=== PATIENT | male | born 1935 | race Two or more races ===

== ENCOUNTER 2021-05-09 13:27 | Inpatient (IN) | payer OTHER ==
[~2021-05-09] VITALS: Ht 167.6 cm; Wt 66.2 kg
[2021-05-09] MEDS ORDERED: AMLODIPINE-OLM1 EAC2 (13:43)
[2021-05-09] MEDS ORDERED: CHILDREN'S15 MG/1 M1 (13:44)
[2021-05-09] MEDS ORDERED: SODIUM BIC (13:44)
[2021-05-09] MEDS ORDERED: DILTIAZEM 24HR180 MG (13:45)
--- NOTE | 2021-05-09 13:45 | NUR ---
PACIENTE MASCULINO, ALERTA Y ORIENTADO. REFIERE RECIBIO JENNIFER LLAMADA DE LABORATORIO INDICANDOLE QUE TIENE PLAQUETAS BAJAS. PACIENTE FUE A HOUSE MEDICO, DR. MONICA MOCTEZUMA, EL CUAL LO REFIERE A SHAILESH DE EMERGENCIAS. SE MIDE S/V. SE UBICA EN SHAILESH DE OBSERVACION.
--- NOTE | 2021-05-09 15:27 | NUR ---
PACIENTE EVALUADO POR DR CORDOVA QUIEN ORDENA [place] MEDICO, SE LE ORIENTA A PACIENTE SOBRE EL MISMO, SE LE MICKY PRUEBAS DE LABORATORIO Y SE CANALIZA AL PACIENTE CON MEDIDAS ASEPTICAS. SE MICKY MUESTRAS DE BI PARA TRANSFUCION Y SE LLEVA A BANCO DE BI. PENDIENTE EKG.
== END 2021-05-12 14:48 | disposition home or self-care (01) | DRG 813 ==
LOC: ER 13:27 → MEDJ 21:11
PROVIDERS: ADMIT Internal Medicine; ATTEND Internal Medicine
PROC: 30233R1 Transfusion of Nonautologous Platelets into Peripheral Vein, Percutaneous Approach (ICD-10-PCS; principal; 2021-05-10)
PROC: BW40ZZZ Ultrasonography of Abdomen (ICD-10-PCS; 2021-05-10)
PROC: B24BZZZ Ultrasonography of Heart with Aorta (ICD-10-PCS; 2021-05-10)
DX: D69.6 Thrombocytopenia, unspecified (principal); N17.8 Other acute kidney failure; N39.0 Urinary tract infection, site not specified; E86.0 Dehydration; J90 Pleural effusion, not elsewhere classified; I21.9 Acute myocardial infarction, unspecified; I12.9 Hypertensive chronic kidney disease with stage 1 through stage 4 chronic kidney disease, or unspecified chronic kidney disease; N18.30 Chronic kidney disease, stage 3 unspecified; D64.9 Anemia, unspecified; Z20.822 Contact with and (suspected) exposure to COVID-19

== ENCOUNTER 2021-08-28 16:30 | Inpatient (IN) | payer OTHER ==
[~2021-08-28] VITALS: Ht 167.6 cm; Wt 69.9 kg
[~2021-08-28 16:30] MED LIST: AMLODIPINE-OLM1 EAC2; CHILDREN'S15 MG/1 M1; DILTIAZEM 24HR180 MG; SODIUM BIC
--- NOTE | 2021-08-28 17:12 | NUR ---
SE RECIBE PACIENTE ALERTA Y ORIENTADO X3 QUIEN REFIERE ADONIS CATARINA AL LABORATORIO EL MORGAN DE HOY Y LE INDICARON QUE TENIA LOS NIVELES DE HEMOGLOBINA EN 6. SE MONITOREAN LOS SV Y SE UBICA EN OBSERVACION.
[2021-08-28] MEDS ORDERED: ISOSORBIDE MONO60 MG (17:14)
[2021-08-28] MEDS ORDERED: VITAMIN B-121000 MC4 (17:14)
[2021-08-28] MEDS ORDERED: TOLTERODINE TART4 MG (17:14)
[2021-08-28] MEDS ORDERED: PEPCID AC20 MG (17:15)
--- NOTE | 2021-08-28 20:34 | NUR ---
PACIENTE EVALUADO POR MANDI MCGEE QUIEN ORDNEA [place] MEDICO. SE ORIENTA A PACIENTE SOBRE EL MISMO REFIERE ENTENDER Y SE EJEUCTAN ORDENES MEDICAS. SE LLAMA A BANCO DE BI Y NOTIFICA MISS MARKS QUE PACIENTE TIENE RECORD PREVIO. SE LE JADE CONCENTIMIENTO A PACIENTE SOBRE TRANFUSION, SE COLECTAN MUESTRAS Y SE ENVIAN AL LABORATORIO. SE LLAMA [place] A [facility] DE BI PARA RECOGIDO DE MUESTRAS EN EL HOSPITAL . SE REQUIZAR 2 UNIDADES DE PRBC ORDENADAS POR LA DRA MCGEE Y LAS MISMAS ESTARAN EN HOLD.
--- NOTE | 2021-08-28 22:28 | NUR ---
SE NOTIFICA CAMBIO DE ORDEN MEDICA DE 3 UNIDADES FRACCIONADAS EN BANCO DE BI DE AUXILIO MUTUO.
--- NOTE | 2021-08-29 01:36 | NUR ---
SE RECIBE PTE ALERTA, ORIENTADO EN BECCA JANAY ESFERAS DEL TURNO ANTERIOR. PTE NO REFIERE DOLOR. VENOPUNCION PATENTE JM DE EDEMA Y ERITEMA. PT CON BUEN PATRON RESPIRATORIO. PENDIENTE PRBC QUE PERSONAL DE BANCO DE BI REFIERE QUE SE ESTA TRABAJANDO EN DA. PENDIENTE CONSULTA CON MEDICINA INTERNA.
--- NOTE | 2021-08-29 03:58 | NUR ---
PERSONAL DE SERVICIOS MUTU[employer] MS ACE REFIERE QUE HAY QUE ACTIVAR PROTOCOLO DE ANTICUERPOS YA QUE PTE SALIO POSITIVO A LOS MISMOS. SE COLECTAN TUBOS BAJO MEDIDAS ASEPTICAS Y SE ENVIAN A BANCO DE BI DE [facility].
--- NOTE | 2021-08-29 07:21 | NUR ---
SE RECIBE PACIENTE MASCULINO ALERTA Y ORIENTADA EN LAS JANAY ESFERAS EL CUAL SE OBSERVA CON BUEN PATRON RESPIRATORIO, CANALIZACION PATENTE, LIMPIA Y SECA Y IVF 0.9NSS AT KVO. PACIENTE PENDIENTE A CONSULTA CON DRA GRAHAM Y TRASFUSION DE 2 UNIDADES DE PRBCS LAS CUALES NO SE ENCUNATRAN DISPONIBLES.
== END 2021-09-08 16:44 | disposition home or self-care (01) | DRG 812 ==
LOC: ER 16:30 → MEDJ 08-29 09:06
PROVIDERS: ADMIT Internal Medicine; ATTEND Internal Medicine
PROC: 30233N1 Transfusion of Nonautologous Red Blood Cells into Peripheral Vein, Percutaneous Approach (ICD-10-PCS; 2021-08-31)
PROC: 0DB78ZX Excision of Stomach, Pylorus, Via Natural or Artificial Opening Endoscopic, Diagnostic (ICD-10-PCS; principal; 2021-09-03)
PROC: 0DBL8ZZ Excision of Transverse Colon, Via Natural or Artificial Opening Endoscopic (ICD-10-PCS; 2021-09-06)
DX: D64.9 Anemia, unspecified (principal); K92.1 Melena; N39.0 Urinary tract infection, site not specified; K29.60 Other gastritis without bleeding; D12.3 Benign neoplasm of transverse colon; K57.30 Diverticulosis of large intestine without perforation or abscess without bleeding; I12.9 Hypertensive chronic kidney disease with stage 1 through stage 4 chronic kidney disease, or unspecified chronic kidney disease; N18.30 Chronic kidney disease, stage 3 unspecified; D63.1 Anemia in chronic kidney disease; R31.9 Hematuria, unspecified; D69.6 Thrombocytopenia, unspecified; Z20.822 Contact with and (suspected) exposure to COVID-19; D72.828 Other elevated white blood cell count; D51.8 Other vitamin B12 deficiency anemias; N40.0 Benign prostatic hyperplasia without lower urinary tract symptoms

== ENCOUNTER 2021-10-02 09:48 | Emergency (ER) | payer OTHER ==
[~2021-10-02] VITALS: Ht 167.6 cm; Wt 71.7 kg
[~2021-10-02 09:48] MED LIST changes: +ISOSORBIDE MONO60 MG; +PEPCID AC20 MG; +TOLTERODINE TART4 MG; +VITAMIN B-121000 MC4
== END 2021-10-04 06:34 | disposition home or self-care (01) ==
LOC: ER 09:48 → SURH 10-03 22:17 → ER 10-04 06:34
DX: D64.9 Anemia, unspecified (principal)

== ENCOUNTER 2021-11-01 11:57 | Inpatient (IN) | payer OTHER ==
[~2021-11-01] VITALS: Ht 167.6 cm; Wt 72.1 kg
--- NOTE | 2021-11-01 12:13 | NUR ---
PACIENTE ALERTA Y ORIENTADO REFIERE HOY LE REALIZARON LAB DE BI A PACIENTE Y HEMOGLOBINA EN 5.7 HOUSE MEDICO PRIMARIO LO REFIRIO A SHAILESH DE EMERGENCIA. SE MONITOREAN S/V Y SE UBICA EN OBSERVACION.
--- NOTE | 2021-11-01 13:53 | NUR ---
PACIENTE EVALUADO POR EL QUIEN ORDENA TRATAMIENTO MEDICO. MANNY REFIERE ENTENDER. SHABANA CRAIG REALIZA MUESTRAS BAJO MEDIDAS ASEPTICAS. SE REALIZA REQUISION DE 3 UNIDADES PRBCS A BANCO DE BI.
--- NOTE | 2021-11-01 18:54 | NUR ---
SE RECIBE LLAMADA DE BANCO DE BI DE LA ARIELA.JOSE JUAN QUIEN INDICA QUE LAS UNIDADES DISPONIBLES PARA PTE SON KENIA ALTERNO O+, Y PTE ES AB+. SE REALIZA LLAMADA A DR.MUNOZ CHAVEZ Y SE NOTIFICA ESTO, APRUEBA KENIA ALTERNO PARA PACIENTE EN ESPERA DE BI. SE DEVUELVE LLAMADA A ARIELA.JOSE JUAN INDICANDO QUE APROBO EL KENIA ALTERNO. ARIELA.JOSE JUAN INDICA QUE COUCH PRONTO ESTAS UNIDADES SE ENCUENTREN DISPONIBLES SE [facility].
--- NOTE | 2021-11-01 21:03 | NUR ---
SE RECIBE PTE ALERTA Y ORIENTADO X3 EN KENN, PTE CON H/L X2 COLOCADOS LOS CUALES S EENCUENTRAN PATENTES. PTE CON 3UNIDADES DE PRBC REQUIZADAS PARA TRANSFUNDIR. PTE CON PERMISO FIRMADO. PTE CONSULTADO CON MEDICNA INTERNA. PTE SE CONTINUA MONITORIANDO POR CAMBIOS.
== END 2021-11-07 13:12 | disposition home or self-care (01) | DRG 812 ==
LOC: ER 11:57 → MEDI 21:50
PROVIDERS: ADMIT Internal Medicine; ATTEND Internal Medicine
PROC: 30233N1 Transfusion of Nonautologous Red Blood Cells into Peripheral Vein, Percutaneous Approach (ICD-10-PCS; principal; 2021-11-01)
DX: D64.89 Other specified anemias (principal); N18.4 Chronic kidney disease, stage 4 (severe); D50.8 Other iron deficiency anemias; D63.1 Anemia in chronic kidney disease; I12.9 Hypertensive chronic kidney disease with stage 1 through stage 4 chronic kidney disease, or unspecified chronic kidney disease; Z20.822 Contact with and (suspected) exposure to COVID-19

== ENCOUNTER 2021-12-23 14:32 | Inpatient (IN) | payer OTHER ==
[~2021-12-23] VITALS: Ht 152.4 cm; Wt 68.0 kg
--- NOTE | 2021-12-23 15:08 | NUR ---
SE RECIBE PTE ALERTA Y ORIENTADO X3 CUAL REFIERE HEMOGLOBINA EN 4. SE MICKY S/V Y SE UBICA.
--- NOTE | 2021-12-23 17:20 | NUR ---
EVALUA PTE. SE EDUCA A PTE SOBRE TX MEDICO EL CUAL REFIERE COMPRENDER. SE REALIZAN MUESTRAS DE LABORATORIO BAJO MEDIDAS ASEPTICAS. SE REALIZA REQUISION PARA 3 UNIDADES DE PRBC FRACCIONADAS, SE COLECTAN TUBOS PILOTOS Y SE NOTIFICA A DE BANCO DE BI DE SERVICIOS [facility]. PTE MANEJADO POR .
--- NOTE | 2021-12-23 21:00 | NUR ---
COLECTA MUESTRAS PARA TUBOS DE PANEL DE ANTICUERPO, SE LLENA DOCUMENTO DE REQUISION Y SE NOTIFICA A MSYOAN (BANCO DE BI) PARA RECOGIDO DE LOS MISMOS.SE LLEVAN MUESTRAS A LABORATORIO PARA RECOGIDO POR BANCO DE BI.
[2021-12-24] MEDS ORDERED: AMLODIPINE BESYL5 MG (08:05)
[2021-12-24] MEDS ORDERED: ESTAZOLAM1 MG (08:05)
[2021-12-24] MEDS ORDERED: ABANEU-SL TABL1 EACH (08:05)
[2021-12-24] MEDS ORDERED: TAMSULOSIN HCL0.4 MG (08:05)
[2021-12-24] MEDS ORDERED: INTEGRA PLUS C1 EAC1 (08:05)
[2021-12-24] MEDS ORDERED: [UNRECOGNIZED DRUG - CODE] (08:06)
[2021-12-24] MEDS ORDERED: PANTOPRAZOLE SO40 MG (08:06)
== END 2021-12-30 20:59 | disposition home or self-care (01) | DRG 812 ==
LOC: ER 14:32 → MEDI 19:53
PROVIDERS: ADMIT Internal Medicine; ATTEND Internal Medicine
PROC: 30233N1 Transfusion of Nonautologous Red Blood Cells into Peripheral Vein, Percutaneous Approach (ICD-10-PCS; principal; 2021-12-24)
PROC: 4A12X45 Monitoring of Cardiac Electrical Activity, Ambulatory, External Approach (ICD-10-PCS; 2021-12-25)
DX: D46.9 Myelodysplastic syndrome, unspecified (principal); I13.10 Hypertensive heart and chronic kidney disease without heart failure, with stage 1 through stage 4 chronic kidney disease, or unspecified chronic kidney disease; I25.10 Atherosclerotic heart disease of native coronary artery without angina pectoris; D63.1 Anemia in chronic kidney disease